=== PATIENT | female | born 1950 | race Asian ===

== ENCOUNTER → 2018-01-15 | Day surgery (SDC) | payer MEDICARE, OTHER ==
[2018-01-10 12:12] LABS: HEMATOCRIT 38.6 % (36.0-47.0); HEMOGLOBIN 13.3 g/dL (12.0-15.5); MEAN CORPUSCULAR HEMOGLOBIN 29.9 pg (27.0-33.4); MEAN CORPUSCULAR HGB CONC 34.3 g/dL (32.0-36.0); MEAN CORPUSCULAR VOLUME 87 fl (80-97); PLATELET COUNT 447 10^3/uL (150-450); RED BLOOD COUNT 4.43 10^6/uL (3.72-5.28); RED CELL DISTRIBUTION WIDTH 12.9 % (11.5-14.0); WHITE BLOOD COUNT 6.7 10^3/uL (4.0-10.5)
[2018-01-10 12:20] LABS: APPEARANCE,URINE CLEAR; BILIRUBIN,URINE NEGATIVE (NEGATIVE); COLOR,URINE STRAW; GLUCOSE, URINE NEGATIVE (NEGATIVE); KETONES,URINE NEGATIVE (NEGATIVE); LEUKOCYTE ESTERASE,URINE NEGATIVE (NEGATIVE); NITRITE,URINE NEGATIVE (NEGATIVE); PROTEIN,URINE NEGATIVE (NEGATIVE); URINE SPECIFIC GRAVITY 1.004; UROBILINOGEN,URINE NEGATIVE mg/dL (<2.0)
[2018-01-10 12:40] LABS: ANION GAP 15 (5-19); BLOOD UREA NITROGEN 14 mg/dL (7-20); CALCIUM 9.6 mg/dL (8.4-10.2); CARBON DIOXIDE 28 mmol/L (22-30); CHLORIDE 99 mmol/L (98-107); GLUCOSE 94 mg/dL (75-110); POTASSIUM 4.4 mmol/L (3.6-5.0); SODIUM 142.4 mmol/L (137-145)
--- NOTE | 2018-01-11 00:02 | EKG REPORT ---
SEVERITY:- NORMAL ECG - SINUS RHYTHM : Confirmed by: Maria Esther Frank MD 11-Jan-2018 00:02:26
[~2018-01-15] MED LIST: ACETAMINOPHEN 1,000 MG/100 ML RTUPB IV ONE; CEFAZOLIN 1 GM/D5W RTU 1 GM/50 ML RTUPB IV PRN; DEXAMETHASONE SOD PHOSPHATE INJ 4 MG/1 ML VIAL ONE; DIPHENHYDRAMINE HCL 50 MG/ML VIAL IV PRN; FENTANYL CITRATE INJ/PF 100 MCG/2 ML AMPUL IV PRN; FENTANYL CITRATE INJ/PF 100 MCG/2 ML AMPUL ONE; HYDROMORPHONE HCL INJ/PF 2 MG/ML AMPULE ONE; IBUPROFEN 800 MG TABLET PO SCH; LACTATED RINGERS 1000 ML IV PRN; LIDOCAINE 0.5% INJ-PF (5 MG/ML) 50 ML SDV SUBCUT PRN; MEPERIDINE HCL/PF INJ 25 MG/1 ML DISP.SYRIN IV PRN; MIDAZOLAM 2 MG/2 ML INJ ONE; MORPHINE SULFATE 10 MG/ML INJ INJ PRN; MORPHINE SULFATE 10 MG/ML INJ IV PRN; ONDANSETRON HCL INJ/PF 4 MG/2 ML SDV ONE; OXYCODONE-ACETAMINOPHEN 5-325 MG TABLET PO PRN; PROMETHAZINE HCL INJ 25 MG/1 ML VIAL IM PRN; PROMETHAZINE HCL INJ 25 MG/1 ML VIAL IV PRN; PROPOFOL INJ 200 MG/20 ML VIAL IV ONE; SUCCINYLCHOLINE CHLORIDE INJ 200 MG/10 ML VIAL ONE
--- NOTE | 2018-01-15 09:36 | OPERATIVE REPORT E ---
Operative Report NAME: ARLENE FUENTES : 1950 AGE: 67Y DATE OF SURGERY: ROOM: PREOPERATIVE DIAGNOSIS: STRESS URINARY INCONTINENCE, CYSTOCELE. POSTOPERATIVE DIAGNOSIS: STRESS URINARY INCONTINENCE, CYSTOCELE. OPERATION: 1. Anterior and posterior colporrhaphy. 2. Transobturator sling placement. 3. Cystoscopy. 4. Perineoplasty. SURGEON: LASHAE ALVAREZ M.D. COMPLICATIONS: None. ANESTHESIA: General endotracheal. ESTIMATED BLOOD LOSS: Approximately 50 mL. FINDINGS: Cystocele, normal bladder, gaping introitus. No evidence of intrusion of suture into the bladder or rectum postprocedure. INDICATIONS FOR PROCEDURE: Patient has symptomatic stress incontinence, desires catheter-dependent therapy. The usual risk of bleeding, infection, anesthesia, damage to organs or tissues have been discussed with patient and understood. Possibility of urinary retention, sling revision, or removal, and incomplete improvement of her stress incontinence have been discussed with patient and understood. The possibility of dyspareunia has been discussed with patient as well. PROCEDURE: The patient was taken to the operating room and placed in modified lithotomy position. After adequate anesthesia was ascertained, she was prepped and draped for a transobturator sling and an anterior and posterior colporrhaphy. A surgical timeout was performed. EUA performed. Antibiotics have been given. A midline incision was made in the anterior portion of the vagina after infiltration of the area with approximately 10 mL of sterile saline for this hydrodissection. Dissection laterally was performed in the anterior compartment. Reasonable tissue was brought in the midline to reproduce bladder support. Patient's vaginal tissue was removed and the vagina was then closed with running 2-0 Chromic catgut. Then 3-0 Vicryl was used for the port of the bladder proper. Attention was then turned to the suburethral area, approximately 1.5 through the urethral orifice. A midline incision was made after hydrodissection. Periurethral tissue was dissected off of the area behind the ramus bilaterally and at the level of the clitoris. The transobturator was placed. The Obtryx trocar was placed directly by palpation. First the left and then the right, guiding the trocar into the vaginal incision and the Obtryx arms were fed into the device and removed and held. The cystoscopy ensued after both arms were placed and intact bladder and urethra were noted. Bladder was then drained and a Villalobos catheter reinserted. The sling was then placed in a tension-free manner as indicated by large Mile clamp and the arms were removed and the vagina was then oversewn using a 2-0 Vicryl stitch. Good hemostasis was noted. The curl areas were closed with *------* blue after the sling was removed. The posterior compartment was then opened through a transperineal incision. This extended proximally 2 to 3 cm into the posterior aspect of the vagina. A small rectocele was noted and reduced using a permanent suture. In a multilayered fashion the rectocele was repaired using 2-0 Chromic catgut to the vaginal area. Perineoplasty ensued patient procedure. All sponge and needle counts were correct. Bleeding was nil. Rectal and postprocedure demonstrated no suture in the rectum. Patient taken to recovery in stable condition. DICTATING PHYSICIAN: LASHAE ALVAREZ M.D. [id number] PHY#: [id number] ID: [id number] JOB#: [id number] ACCT: [id number] cc:LASHAE ALVARZE M.D. >
[2018-01-15 11:58] VITALS: BP 120/71
== END ==
LOC: OROUT 05:20
PROVIDERS: ATTEND Specialist
DX: N81.4 Uterovaginal prolapse, unspecified (principal); N39.3 Stress incontinence (female) (male); N81.89 Other female genital prolapse; I10 Essential (primary) hypertension; Z86.73 Personal history of transient ischemic attack (TIA), and cerebral infarction without residual deficits; Z88.6 Allergy status to analgesic agent
CPT/HCPCS: 93005; 86900; 86901; 36415 ×2; 86850; 84132; 85027; 80048; 81001; 93010; 57260; 57288; C1763; J2250; J0690; J1100; J3010; J0330; J2405; J2704; J0131; 942; J1170

== ENCOUNTER 2018-07-21 12:44 | Emergency (ER) | payer OTHER ==
[2018-07-21] MEDS ORDERED: KETOROLAC TROMETHAMINE INJ/PF 30 MG/1 ML SDV IM ONE (14:38)
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
[2018-07-21 16:37] VITALS: BP 150/71
== END 2018-07-21 16:43 | disposition home or self-care (01) ==
LOC: ER 12:44
DX: S16.1XXA Strain of muscle, fascia and tendon at neck level, initial encounter (principal); M54.2 Cervicalgia; M25.512 Pain in left shoulder; M54.89 Other dorsalgia; V49.40XA Driver injured in collision with unspecified motor vehicles in traffic accident, initial encounter; M51.36 Other intervertebral disc degeneration, lumbar region; Z72.0 Tobacco use; I10 Essential (primary) hypertension; Z88.6 Allergy status to analgesic agent
CPT/HCPCS: 99284; 96372; 72110; 73030; 72070; 72125; J1885